=== PATIENT | female | born 1955 | race Caucasian/White ===

== ENCOUNTER 2016-04-13 15:21 | Inpatient (IN) | payer MEDICARE, MEDICAID ==
[~2016-04-13] VITALS: Ht 152.4 cm; Wt 79.5 kg
[~2016-04-13 15:21] MED LIST: DSS100 PO; DULO30C PO; LEVO125T2 PO; ONDA4TAB2 PO; OXYC-284 PO; [UNRECOGNIZED DRUG - CODE] PO
[2016-04-13 15:24] VITALS: BP 194/104; PULSE 113; RESP 20; O2SAT 99
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
[2016-04-13 16:26] LABS: BASOPHILS % (AUTO) 0.6 % (0-3); MONOCYTES % (AUTO) 7.2 % (4-12); Mean Corpuscular Volume 91.6 fL (81-100); Platelet Count 281 bil/L (150-400)
[2016-04-13 17:04] LABS: APPEARANCE,URINE CLEAR (CLEAR,HAZY); COLOR,URINE YELLOW (YELLOW); OCCULT BLOOD,URINE MODERATE (NEGATIVE); PH,URINE 6.5 (5.0-8.0); UROBILINOGEN,URINE NORMAL (NORMAL)
--- NOTE | 2016-04-13 20:38 | DRSVH ---
PROCEDURE: CT BRAIN WITHOUT CONTRAST ([id number]) INDICATIONS: headache h/o meningioma TECHNIQUE: Noncontrast 4.5 mm thick angled axial sections acquired from the foramen magnum to the vertex, with c oronal reformats. COMPARISON: Merged With [facility], MR, STROKE PROTOCOL (PNL), 05/12/2013, 15:52. [facility], CT, BRAIN W/O CONTRAST, 05/12/2013, 13:53. FINDINGS: Image quality: Excellent. CSF spaces: Basal cisterns are patent. No extra-axial fluid collections. The ventricles are symmet tatiana in size and shape. Brain: No intracranial bleeds or masses. There is minimal cerebral volume loss for age, with result ant ventricular and sulcal prominence. There are mild periventricular and deep white matter chronic small vessel ischemic changes. There is intracranial internal carotid artery atherosclerosis. Skull and face: There is parietal craniotomy. Sinuses: Visualized sinuses and mastoids are clear. IMPRESSION: 1. No acute intracranial abnormalities. 2. Cerebral volume loss and chronic microvascular ischemic changes. Dictated by: Harley Catherine M.D. on 04/13/2016 at 20:36 Approved by: Harley Catherine M.D. on 04/13/2016 at 20:36
[2016-04-13 20:56] VITALS: BP 144/84; PULSE 84; RESP 16; O2SAT 96
[2016-04-13] MEDS ORDERED: Benzocaine-Menthol Lozenge 2/Pkg PO PRN (22:25)
[2016-04-13] MEDS ORDERED: Magnesium Hydroxide 10 mL Oral Concentration PO PRN (22:25)
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
[2016-04-13] MEDS ORDERED: LEVO175T5 (23:23)
[2016-04-13] MEDS ORDERED: AMIT10TA6 (23:23)
[2016-04-13] MEDS ORDERED: OMEP20CA11 PO (23:23)
[2016-04-14] MEDS: Zolpidem 5 mg Tablet for FEMALE or >65YO PO PRN ×2 (00:56→20:49)
[2016-04-14] MEDS: LORazepam 0.5 mg Tablet PO PRN ×4 (00:56→21:33)
--- NOTE | 2016-04-14 05:44 | NUR ---
Pt arrived at 2114. Pt up and down through night for sleep. Isolated to room when awake. Pt observed every 15 minutes as ordered.
--- NOTE | 2016-04-14 05:46 | NUR ---
nursing, nights, 11-7 s- can i have something for anxiety and sleep ? thank you. o- has appeared to sleep after midnight to 0045. asked for and received 0.5 mg of anxiety and 5 mg of ambien at 0100 with good effect. slept 0130- 0300 and after 0345. assessed q 15 minutes. a- interrupted sleep, medication helpful, no apparent physical distress. p- monitor behavior/emotional state, quality, times and amount of sleep, use and effect of medication. naman
--- NOTE | 2016-04-14 11:38 | NUR ---
Nurses note Pt. c/o of 11/23 anxiety and 11/23 depression. States she "doesnt want to be alive", but denies any plans of self harm at this time. Says she feels safe here. Denies hallucinations. PRN ativan given at 1000. Assessed at 1100, and pt. states it has helped and is feeling a bit better.
[2016-04-14 18:01] VITALS: BP 153/95; PULSE 95; RESP 16
--- NOTE | 2016-04-14 18:43 | NUR ---
[facility] Day Shift Pt maintained behavioral control throughout the shift. Pt affect appears mostly flat, somewhat brighter when engaged with staff or peers. Pt spends most of the shift resting in her room or quietly watching TV in the dining room. Pt is appropriate with staff and peers when active on the unit, but is not social. Pt requested a room change in the afternoon, which staff accommodated without incident. Pt attended community meeting in the AM. Pt did not participate in group activities throughout the shift. Pt attended all meals and ate approx 100% of all meals.
[2016-04-14] MEDS: lamoTRIgine 25 mg Tablet PO SCH (20:49)
--- NOTE | 2016-04-14 23:33 | NUR ---
Nursing Note [id number] S. I don't feel anxious right now, I am here, I feel that is what I needed to do to try to get better. I just feel really depressed-I cant seem to make it better and I just put on my pleasant face all the time to hide it. O. Patient visible on unit, interacting with peers, watching TV. Patient rates anxiety 0/10, depression 6/10, denies current SI/HI or AH/VH. A. Patient appears depressed. Denied anxiety, but asked for Ativan twice this shift. P. Monitor for response to treatment/medications. Q 15 min checks for safety. Follow plan of care. Addendum: 04/14/16 at 2333 by MARYA LUJAN RN PRNs Ativan 0.5 mg po @ 1538 patient reports I am not really anxious-just really depressed. Ativan 0.5 mg po @ 2132 Tums 100 mg for heartburn @ 1749. Ambien 5mg for sleep @ 2048
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
--- NOTE | 2016-04-15 05:05 | NUR ---
Pt in bed upon arrival to unit. Sleep time noted 2215. pt slept a total of 7 hr uninterrupted sleep. No PRN's given on shift. Q15 min safety checks done per protocol, no distress noted. WCTM sleep, safety, behavior
--- NOTE | 2016-04-15 05:40 | NUR ---
PT Out on unit watching TV and attending group. Asleep at 2215. Pt observed every 15 minutes as ordered.
[2016-04-15 11:36] VITALS: BP 169/106; PULSE 91; RESP 16
[2016-04-15] MEDS: LORazepam 0.5 mg Tablet PO PRN ×2 (14:18→20:13)
[2016-04-15] MEDS: Pantoprazole 40 mg ER24 Tablet PO SCH (14:20)
--- NOTE | 2016-04-15 14:27 | NUR ---
Nursing Day Shift- S-"I'm not sure how I feel. The had me do an exercise today that threw me for a loup. At least now I know I will get well and I'm doing something about it." O- Pt. was awake for breakfast. She appeared well groomed and was polite and social with peers. She was able to contract for safety, but reports ongoing depression and anxiety. Ativan 0.5 reqyested and given at 1430 for anxiety rated 7/10. A- Depression, Participatory, eating well, tending to ADL's. P- Cont. BHTP.
[2016-04-15 17:15] VITALS: BP 148/118; PULSE 111; RESP 17
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
--- NOTE | 2016-04-15 18:25 | NUR ---
Fishing Tool Operator./ c.m. S.:"I'm very melancholy but I'm not covering it up." O.: met with pt. and MD together. Pt. is vol. This is her 1st psych. hospitalization. She "slept very well" last night. She denied SI/HI at this time. She denied AH/VH or paranoid/delusional thoughts. She rated depression at 8-9/10 and anxiety at 6/10. She was able to work on Treatment plan and goals in the best of her ability. She was in and out of her room. She denied side effect of meds. A.: pt. is cooperative, quiet, has a flat affect. P.: monitor behavior, work on CBT exercises; follow care plan.
--- NOTE | 2016-04-15 18:32 | PCM.PNPSY ---
Subjective Date of Service Apr 15, 2016 Subjective The patient reports today that she slept very well "wonderful" but was feeling mildly groggy this morning. She stated overall that she was feeling "very melancholy" as she is not covering up her mood with a false smile. She reported that she plans to do some increased activity when she gets out of the hospital and will be doing water aerobics with a friend. The patient did not complete her CBT worksheet. No other side effect complaints. Sleep: 7+ hours "slept wonderful" Appetite: "Not hungry at all" Suicidal and homicidal ideation: "Quieted" regarding SI, denies HI. Auditory hallucinations/Visual hallucinations: Denies Other Psychotic Symptoms: Denies Anxiety: Decreased over yesterday, 09/23. Depression: 8-12/24, 10/23 yesterday as she was "covering" Current Medications Current Medications Acetaminophen 650 mg Q4H PRN PO Last administered on 04/14/16at 17:51; Admin Dose 650 MG; Start 04/13/16 at 22:25 Amlodipine Besylate 5 mg DAILY PO Last administered on 04/15/16at 14:18; Admin Dose 5 MG; Start 04/15/16 at 11:45 Calcium Carbonate START WITH 500MG, IF ... Q6H PRN PO Last administered on at 17:51; Admin Dose 1,000 MG; Start 04/13/16 at 22:25 Lamotrigine 25 mg HS PO Last administered on 04/14/16at 20:49; Admin Dose 25 MG ; Start 04/14/16 at 21:00 Levothyroxine Sodium/ Levothyroxine Sodium 175 mcg DAILYAC PO Last administered on 04/15/16at 14:16; Admin Dose 175 MCG; Start 04/15/16 at 11:56 Lorazepam 0.5 mg Q6H PRN PO Last administered on 04/15/16at 14:18; Admin Dose 0.5 MG; Start 04/13/16 at 22:25 Mirtazapine 30 mg HS PO Last administered on 04/14/16at 20:51; Admin Dose 30 MG ; Start 04/14/16 at 21:00 Pantoprazole 40 mg DAILYAC PO Last administered on 04/15/16at 14:20; Admin Dose 40 MG; Start 04/15/16 at 11:40 Zolpidem Tartrate 5 mg HS PRN PO Last administered on 04/14/16at 20:49; Admin Dose 5 MG; Start 04/13/16 at 22:25 Mental Status Exam Vital Signs Vital Signs Date Time Temp Pulse Resp B/P Pulse Ox O2 Delivery O2 Flow Rate FiO2 04/15/16 11:36 36.5 91 16 169/106 Appearance: Neat/well groomed Attitude: Pleasant, Cooperative Behavior: No unusual behavior Affect: Well Modulated/Appropriate Mood: Dysthymic Thought Process/Associations: Logical/Sequential, Goal Directed Speech Production: Normal Speech Rate: Normal Speech Articulation: Normal Thought Content: Negativistic Danger to Self/Suicidal Ideati: None Danger to Others: None Hallucinations: Auditory (Denies), Visual (Denies) Consciousness: Alert Orientation: Person, Place, Date, Situation Memory: Grossly Intact Estimate Intellectual Function: Average Attention/Concentration & Cogn: Grossly Intact Insight: Good Judgement: Good Result Diagram: 04/13/16 1609 04/13/16 1609 Mental Health Plan The patient is a 61-year-old female with an extensive history of trauma, depression, and anxiety. She is currently presenting with worsening symptoms of depression and anxiety. She also presents with some mood elevation and may be experiencing rapid cycling bipolar, although her moods do not seem excessively out of control. It is possible that she may be experiencing some depersonalization related to her post traumatic stress disorder. There is a strong family history of responding to lamotrigine and, given her history of traumatic brain injury and affective instability, she would likely benefit from this medication. She was given informed consent regarding both lamotrigine and mirtazapine. It was believed that the use of mirtazapine may be beneficial in normalizing her sleep, appetite, and depression. The patient has positively responded so far to mirtazapine with improved sleep although there is no change in mood. No current suicidality. [place] AXIS I: 1. Posttraumatic stress disorder with possible depersonalization. 2. Major depressive disorder, chronic. 3. Generalized anxiety disorder by history. AXIS II: Deferred. AXIS III: See past medical history. AXIS IV: Moderate to severe with social isolation, limited coping skills, and chronic mental illness. AXIS V: Global Assessment of Functioning 30. Medications Medications to address General Physical Health Treatments 1. The patient will be provided a safe environment and at the present is denying active suicidal ideation and does not require one-to-one staffing. 2. She is encouraged to participate in group and milieu therapies. 3. She will meet with the treatment team on a daily basis to assess symptom side effects and response to treatment. 4. The patient will continue mirtazapine 30 mg nightly. 5. The patient will continue Lamictal 25 mg nightly. 6. Lorazepam 0.5 mg every 6 hours as needed for anxiety. 7. Zolpidem 5 mg nightly p.r.n. insomnia. 8. Anticipated length of stay 5-7 days. Mahin Small MD Apr 15, 2016 18:32
[2016-04-15] MEDS: Zolpidem 5 mg Tablet for FEMALE or >65YO PO PRN (20:12)
[2016-04-15] MEDS: lamoTRIgine 25 mg Tablet PO SCH (20:12)
[2016-04-15 20:40] VITALS: BP 149/102; PULSE 110; RESP 15
--- NOTE | 2016-04-15 22:13 | NUR ---
Nursing Note [id number] S: I am doing a little better today. O: Patient in dining room early afternoon, visited with in dining room this evening. Interacting with peers. Denied SI/HI, hallucinations. Reporting anxiety 09/23 depression 11/23. A: Anxiety not apparent. Smiling more this evening. P: Monitor for safety and response to treatment. Follow plan of care. Addendum: 04/15/16 at 2213 by MARYA LUJAN RN PRNs Ativan 0.5 mg po for anxiety 09/23 @ 2011. Effective anxiety reduced, patient sleeping.
--- NOTE | 2016-04-16 06:39 | NUR ---
Sleep Adequate sleep with over 7.5 hours. She awoke b/w [id number] and returned to sleep by 444.
[2016-04-16] MEDS: Pantoprazole 40 mg ER24 Tablet PO SCH (07:20)
[2016-04-16] MEDS: LORazepam 0.5 mg Tablet PO PRN ×3 (09:40→22:26)
--- NOTE | 2016-04-16 10:49 | NUR ---
Nursing Day Shift- S- "What should I feel with the Imitrex? What might I feel with the antidepressant? I slept better then I had been last night, but not as well as the night before. Can I get something for anxiety?" O- Pt. was awake for breakfast. She was pleasant, but flat. Pt. requested and received tylenol 650 mg for a headache rated 9/10 at 0800. She reported minimal relief. At 0935 Imitrex 25 and Ativan 0.5 were requested and given. At 1015 Pt. rated her pain as 5/10. Imitrex requested again at 1125.Pt. denies feeling and change with new psychiatric medications. Depression rated 8/10. A- Depression. Minimal effect thus far with medications. Headache improved with Imitrex. P- cont. BHTP
--- NOTE | 2016-04-16 14:20 | PCM.PNPSY ---
Subjective Date of Service Apr 16, 2016 Subjective The patient reports that her sleep was not quite as good as the previous night but still much better than it has been. She had a visit from her brother last night which went well. We discussed some of her reactions to completing a CBT work sheet and her feelings of being rejected by her son and helped her to process the information in a more meaningful way. The patient reported having a significant migraine which had developed over the last 4 days which did improve with Imitrex this morning. Her blood pressure remained elevated this morning 163/96. She denied side effects. Sleep: 7.5 hours, "better but not as good as last night." Appetite: "Still not much" Suicidal ideation: Reported having passive suicidal ideation when she woke up in the middle of the night. No current suicidality, plan, or intent. Homicidal ideation: Denies Auditory hallucinations/Visual hallucinations: Denies Other Psychotic Symptoms: Denies Anxiety: 08/23 Depression: 11/23, but after reviewing CBT work sheet and reformulating, 09/23. Current Medications Current Medications Amlodipine Besylate 5 mg DAILY PO Last administered on 04/16/16 07:20; Admin Dose 5 MG; Start 04/15/16 at 11:45 Lamotrigine 25 mg HS PO Last administered on 04/15/16at 20:12; Admin Dose 25 MG ; Start 04/14/16 at 21:00 Levothyroxine Sodium/ Levothyroxine Sodium 175 mcg DAILYAC PO Last administered on 04/16/16 07:20; Admin Dose 175 MCG; Start 04/15/16 at 11:56 Mirtazapine 30 mg HS PO Last administered on 04/15/16at 20:13; Admin Dose 30 MG ; Start 04/14/16 at 21:00 Pantoprazole 40 mg DAILYAC PO Last administered on 04/16/16 07:20; Admin Dose 40 MG; Start 04/15/16 at 11:40 Sumatriptan Succinate 25 mg Q2H PRN PO Last administered on 04/16/16 12:59; Admin Dose 25 MG; Start 04/16/16 at 09:15 Mental Status Exam Appearance: Neat/well groomed Attitude: Pleasant, Cooperative Behavior: No unusual behavior Affect: Restricted Mood: Dysthymic Thought Process/Associations: Logical/Sequential, Goal Directed Speech Production: Normal Speech Rate: Normal Speech Articulation: Normal Thought Content: Negativistic Danger to Self/Suicidal Ideati: None, Passive (only in the middle of the night. ) Danger to Others: None Hallucinations: Auditory (Denies), Visual (Denies) Consciousness: Alert Orientation: Person, Place, Date, Situation Memory: Grossly Intact Estimate Intellectual Function: Average Attention/Concentration & Cogn: Grossly Intact Insight: Good Judgement: Good Result Diagram: 04/13/16 1609 04/13/16 1609 Mental Health Plan The patient is a 61-year-old female with an extensive history of trauma, depression, and anxiety. She is currently presenting with worsening symptoms of depression and anxiety. She also presents with some mood elevation and may be experiencing rapid cycling bipolar, although her moods do not seem excessively out of control. It is possible that she may be experiencing some depersonalization related to her post traumatic stress disorder. There is a strong family history of responding to lamotrigine and, given her history of traumatic brain injury and affective instability, she would likely benefit from this medication. She was given informed consent regarding both lamotrigine and mirtazapine, including the risk of Napier-Connor syndrome. It was believed that the use of mirtazapine may be beneficial in normalizing her sleep, appetite , and depression. The patient has positively responded so far to mirtazapine with improved sleep and some improvement in her mood. The patient responded positively to Imitrex for migraines. CBT work sheets were useful for cognitive reformulation. No current suicidality. [place] AXIS I: 1. Posttraumatic stress disorder with possible depersonalization. 2. Major depressive disorder, chronic. 3. Generalized anxiety disorder by history. AXIS II: Deferred. AXIS III: See past medical history. AXIS IV: Moderate to severe with social isolation, limited coping skills , and chronic mental illness. AXIS V: Global Assessment of Functioning 35. Medications Sumatriptan 25 mg every 2 hours when necessary headache Pantoprazole 40 mg daily Amlodipine 5 mg daily Levothyroxine 175 g daily Mirtazapine 30 mg nightly Lamotrigine 25 mg nightly, titrate as tolerated. Lorazepam 0.5 mg every 6 hours when necessary anxiety Zolpidem 5 mg by mouth nightly when necessary insomnia Treatments 1. The patient will be provided a safe environment and at the present is denying active suicidal ideation and does not require one-to-one staffing. 2. She is encouraged to participate in group and milieu therapies. 3. She will meet with the treatment team on a daily basis to assess symptom side effects and response to treatment. 4. The patient will continue mirtazapine 30 mg nightly. 5. The patient will continue Lamictal 25 mg nightly. 6. Lorazepam 0.5 mg every 6 hours as needed for anxiety. 7. Zolpidem 5 mg nightly p.r.n. insomnia. 8. Now that migraine has resolved, we will need to recheck blood pressure and if it remains elevated in the morning would increase amlodipine to 10 mg. 9. Continue use of CBT worksheets. 10. Anticipated length of stay 5-7 days. Mahin Small MD Apr 16, 2016 14:20
[2016-04-16 15:34] VITALS: BP 169/106; PULSE 91; RESP 16
[2016-04-16 15:35] VITALS: BP 163/96; PULSE 96; RESP 16
--- NOTE | 2016-04-16 16:06 | NUR ---
[employer]./ c.m. S.:"Negative thoughts are better today." O.: met with pt. and MD together. Pt. complained about negative thoughts that kept her awake during last night. She slept "ok" but "previous night sleep was great". She had a good visit with her brother yesterday. She complained about headache today. She denied SI/HI right now but she said that she had "passive thought on and off on the middle of the night." She denied AH/VH or paranoid/delusional thoughts. She rated depression at 8/10 and anxiety at 6/10. She talked about her communication with her son and how she could work on CBT skills regarding their relationship. Staff provided pt. with info on Communication styles and Communication gap. Pt. was in and out of her room during the day. A.: pt. is cooperative, pleasant, passive, more social with peers. P.: monitor behavior, continue working on CBT and DBT skills; follow care plan.
--- NOTE | 2016-04-16 19:30 | NUR ---
NURSING NOTE [id number] Orientation= x4 Mood= "I'm still depressed" Affect= pleasant, brightens in conversation Behavior= visible in the common area for first half of the shift, watching football w/her peers, later retired to her room to read in bed. Med compliant. Thought processes= reports she is still feeling depressed and sad, and asked if it will ever get better-- discussed w/pt. that the medications take time to work, encouragement provided. When asked if she felt suicidal pt. reports she hears what sounds "like a mantra" telling her to kill herself, and that she has had it for "a long time" but this mantra is now more muted and she has no desire or plan to act on it. She described it as being more of a compulsion, discussed w/pt DBT and the practice of thought stopping. PRNS 16:04- Ativan 0.5 mg
[2016-04-16] MEDS: lamoTRIgine 25 mg Tablet PO SCH (21:09)
--- NOTE | 2016-04-16 21:12 | NUR ---
Observations 0900 to 2130 Pt affect and mood was flat and passive. Pt was isolative at times. Pt was pleasant, polite and cooperative. Pt speech and eye contact was good. Pt attended group and unit activities. Pt was social with peers. Pt watched football, TV and movies with peers. Pt maintained behavior control throughout the shift. Pt attended meals in the D.R. and ate 100% of breakfast, 100% of lunch and 100% of dinner. Pt was observed every 15 minutes throughout the shift as ordered.
[2016-04-16] MEDS: Zolpidem 5 mg Tablet for FEMALE or >65YO PO PRN (22:26)
--- NOTE | 2016-04-17 04:32 | NUR ---
OBSERVATIONS 1900 TO 0700 Pt was social with peers, pleasant and cooperative with staff. Pt attended group wrap-up, accomplished daily goal of watching football. Pt rated mood 5/10. Pt joked around with staff and peers, pt is very helpful. Pt was restless at first but was noted asleep at 0030. Maintained Q15 safety checks as directed.
--- NOTE | 2016-04-17 05:55 | NUR ---
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 Patient awake at 0500, requested " Tylenol and Tums" for complaint of H/A 7/10 and indigestion. Patient received Tylenol 650 mg and toe 500mg Tums. Patient returned to bed and appears to be sleeping at 0530 safety checks without further complaints voiced.
[2016-04-17] MEDS: Pantoprazole 40 mg ER24 Tablet PO SCH (08:33)
[2016-04-17] MEDS: LORazepam 0.5 mg Tablet PO PRN ×2 (10:22→20:40)
--- NOTE | 2016-04-17 12:46 | NUR ---
Nursing Day Shift- S- "I feel dizzy and I wonder if it could be my blood pressure? It started after the surgery." (Pt. reports dizziness since brain surgery.) O- Pt. reported feeling "melancholy." She was visible on the unit and participatory. She reported a headache of 4/10. A- Ongoing depression, Hypertension, headache and dizzy feeling. P- Pt. encouraged to discuss BP and dizziness wit the ContRenetta JOHANSEN
[2016-04-17] MEDS: Alum-Mag Hydrox-Simeth 30 mL Suspension PO PRN (16:52)
--- NOTE | 2016-04-17 20:24 | NUR ---
Obs Dayshift Pt is polite, engaging well w/ peers and staff. Pt participates, good eye contact, calm, and linear. Good ADL's, Good meals 75-100%
[2016-04-17] MEDS: lamoTRIgine 25 mg Tablet PO SCH (20:40)
[2016-04-17] MEDS: Zolpidem 5 mg Tablet for FEMALE or >65YO PO PRN (20:40)
--- NOTE | 2016-04-17 21:25 | PROG NOTE ---
[address] [address] PROGRESS NOTE PATIENT: DEE TREVIÑO : 1955 MR#: [id number] ADMIT: 04/13/2016 JOB ID: [id number] DATE: 04/17/2016 CHIEF COMPLAINT: "I was wondering if I can get an increase in my bipolar medicine. I am still pretty depressed." This is per patient report. HISTORY OF PRESENT ILLNESS: As stated above, the patient identified that she does feel that her Lamictal more than likely needs to be increased. She indicated that she is dealing with significant feelings of depression, feelings of hopelessness, helplessness. She indicated also that she was struggling with difficulties with nausea as related to a transition from her previous doses of Prilosec to Protonix based on hospital formulary. She indicated that she would like to have something for nausea. MENTAL STATUS EXAM: She was bright, cooperative, interactive. She maintained good eye contact throughout. Her speech was of normal tone, frequency, and volume. Her mood, per own report, is depressed. However, she appeared to be quite bright. Her affect was congruent. Her thought process showed no evidence of racing thoughts, flight of ideas, loose or disconnected thinking. Her thought content: She denied any evidence of current suicidal, homicidal ideation. She denied any active hallucinations, delusions. She was alert, oriented to time and place. Her attention and concentration were fair. Insight and judgment are poor. PHYSICAL EXAM: Vital signs of current. Temperature is 36.5, pulse 96, respirations 16, BP 163/96. MEDICATION REVIEW: Includes: 1. Doses of Imitrex 25 mg q.2 h. p.r.n. for migraine. 2. Synthroid 175 mcg daily. 3. Norvasc 5 mg daily. 4. Protonix 40 mg daily. 5. Remeron 30 mg q.h.s. 6. Lamictal 25 mg q.h.s. ASSESSMENT: [place] I 1. Posttraumatic stress disorder, chronic. 2. Depersonalization disorder. 3. Major depressive disorder, chronic. 4. Generalized anxiety disorder. [place] II Rule out cluster B personality features. [place] III 1. History of hypertension. 2. Hypothyroidism. 3. Gastroesophageal reflux disease. 4. Migraines. [place] IV Stressors are noted for social isolation, limited coping, chronic mental illness. [place] V Global assessment of functioning, current 35. PLANS: 1. Recommendations for titration of Lamictal to 50 mg q.h.s. 2. Titration of Norvasc to 10 mg daily based on continued hypertension. 3. Initiation of Zofran q.4 h. p.r.n. for nausea. 4. Recommended probable discharge later this week for continuation of outpatient interventions.
--- NOTE | 2016-04-17 21:55 | NUR ---
NURSING NOTE [id number] Orientation= x4 Mood= "even more depressed" *sighs* Affect= sad but brightens in conversation w/staff and peers Behavior= visible on unit, social w/peers, c/o upset stomach early in the shift d/t "all the processed food here" but this was relieved w/PRN Maalox. She attended wrap-up group. Med compliant. Thought processes= pt. continues to endorse depression. Says she feels "even worse than yesterday". She expressed frustration that she doesn't feel better. She expressed hope that her increased Lamictal dose this evening will help her. PRNs Maalox 16:52, effective Ativan 0.5 mg for anxiety and Ambien 5 mg @ HS for insomnia Addendum: 04/17/16 at 2204 by NGHIA MUÑOZ RN pt. expressed passive SI this evening w/no plan or intent, reports she feels safe here
--- NOTE | 2016-04-18 01:42 | NUR ---
Observations 1900 to 0700 Pt spent most of her night in her room. Pt did come out briefly for group and a snack. Pt was polite and cooperative. Pt read in her bed for awhile before before going to sleep. Pt first appeared asleep at 22:30 and was observed every 15 minutes through the night as directed.
--- NOTE | 2016-04-18 05:37 | NUR ---
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 Patient returned to bed, appears to be sleeping after 0230 safety checks and subsequent safety checks remainder of the night.
[2016-04-18] MEDS: Pantoprazole 40 mg ER24 Tablet PO SCH (07:25)
[2016-04-18 10:00] VITALS: BP 155/93; PULSE 90; RESP 16
[2016-04-18] MEDS: LORazepam 0.5 mg Tablet PO PRN ×2 (11:25→21:00)
--- NOTE | 2016-04-18 13:27 | NUR ---
Nursing Note [id number] Behavior, PRN Medications S/O: Pt c/o headache at a "7" on a scale of 1-10/10 the worst. Tylenol 650 mg given at 0725. Pt reported an improvement to a "6." Pt returned at 1125 & stated she still had a headache & was becoming anxious. Imitrex & Ativan 0.5 mg given. Pt currently states headache is gone. Pt rated anxiety at a "8." She reports it is "better." Pt rated depression at a "6." She reports feeling "weepy." She denies suicidal ideation. Pt out in unit. Pleasant & cooperative with cares & medications. Good appetite. A: Pt struggling with depression. P: Provide supportive environment. Monitor medications & effects.
--- NOTE | 2016-04-18 16:16 | PROG NOTE ---
[address] [address] PROGRESS NOTE PATIENT: DEE TREVIÑO : 1955 MR#: [id number] ADMIT: 04/13/2016 JOB ID: [id number] DATE: 04/18/2016 CHIEF COMPLAINT: "I think I am doing okay. Thank you for increasing my Lamictal." HISTORY OF PRESENT ILLNESS: As stated above, the patient openly identified that she is doing a little bit better. She indicated that she has been working on various skills throughout the daytime hours and indicated that she would be willing to look at discharge on . OBJECTIVE: On mental status examination, she was bright, cooperative, interactive. She maintained good eye contact throughout. Her speech was of normal tone, frequency and volume. Her mood was neutral. Affect was congruent. Her thought process showed no evidence of racing thoughts, flight of ideas, loose or disconnected thinking. Thought content: She denied any evidence of current suicidal or homicidal ideation. No evidence of active hallucinations, delusions. She was alert, oriented to time and place. Attention and concentration intact. 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 Insight and judgment are fair. PHYSICAL EXAMINATION: Vital signs are current. Temperature is 37, pulse 90, respirations 16, BP 155/93. MEDICATION REVIEW: Includes: 1. Norvasc 10 mg daily. 2. Lamictal 50 mg q.h.s. 3. Synthroid 175 mcg daily. 4. Remeron 30 mg q.h.s. ASSESSMENT: AXIS I 1. Major depressive disorder, recurrent type. 2. Posttraumatic stress disorder, chronic. 3. Depersonalization disorder. 4. Generalized anxiety disorder. AXIS II Cluster B personality features. AXIS III 1. History of hypertension. 2. Hypothyroidism. 3. Gastroesophageal reflux disease. 4. Migraines. AXIS IV Stressors are noted for social isolation, limited coping, chronic mental illness. AXIS V Global assessment of functioning of current 35. PLANS: 1. Recommendations to continue all medications as noted. 2. Probable discharge on .
--- NOTE | 2016-04-18 16:36 | NUR ---
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 S.:"I'm having a good moment. Mood is better today." O.: met with pt. in her room. She slept "better than before" last night. She was pleased with her meds. She denied SI/HI, denied AH/VH or paranoid/delusional thoughts. She rated depression at 8/10 and anxiety at 3-4/10. She said that her mood was "much better" than before. She was in and out of her room during the day. A.: pt. is cooperative, pleasant, has brighter affect and a positive attitude. P.: monitor behavior, work on Safety plan and follow up; follow care plan.
--- NOTE | 2016-04-18 20:23 | NUR ---
Obs Dayshift Pt spent more time in the evening out in the milieu w/ peers watching TV. Spent the day in and out of her room, reading, writing and napping. Pt is polite, good eye contact, appropriate, engages well, quiet, slightly reserved. Good ADL's, Good meals
[2016-04-18] MEDS: lamoTRIgine 25 mg Tablet PO SCH (20:57)
[2016-04-18] MEDS: Zolpidem 5 mg Tablet for FEMALE or >65YO PO PRN (21:00)
--- NOTE | 2016-04-18 22:20 | NUR ---
Nursing Note Mary Pt up in milieu most of shift. pt noted socializing with staff and peers.Pt attended group and mary snack Pt answers questions appropriately and appears to be clear in thought process. Pt was compliant with HS meds and appeared to be guarded when questioning anxiety and depression . Pt did request Ativan for anxiety and Ambien to help her sleep. Pt went to bed shortly after and is currently resting in room. Q15 min safety checks done per protocol, [facility] sleep, safety, behavior
--- NOTE | 2016-04-19 01:27 | NUR ---
Observations 1900 to 0700 Pt affect remains the same as in the previous night. Pt did come out briefly for group and a snack. Pt was polite and cooperative. Pt read in her bed for awhile before before going to sleep. Pt first appeared asleep at 22:30 and was observed every 15 minutes through the night as directed.
--- NOTE | 2016-04-19 05:55 | NUR ---
Sleep Adequate sleep of 7.5 hours. No noted distress or awakening per protocol checks.
[2016-04-19] MEDS: Pantoprazole 40 mg ER24 Tablet PO SCH (07:52)
--- NOTE | 2016-04-19 11:18 | NUR ---
Nursing Day Shift- S- "I feel so much better today. I think my blood pressure was causing all kinds of problems. I'm no longer dizzy and when I woke up I didn't even think about wanting to not be here." O- Pt. had slept 7.5 hours per staff report. She appeared at breakfast well dressed, and eat 100%. Pt. reported improved mood and decreased anxiety today. She denied feeling dizzy. A- Decreased depression and anxiety. Improved sleep. P- Cont. BHTP.
[2016-04-19] MEDS: LORazepam 0.5 mg Tablet PO PRN ×2 (12:25→20:40)
[2016-04-19] MEDS: lamoTRIgine 25 mg Tablet PO SCH (20:41)
[2016-04-19] MEDS: Zolpidem 5 mg Tablet for FEMALE or >65YO PO PRN (21:37)
--- NOTE | 2016-04-19 21:40 | NUR ---
nursing note 3-11pm S)"I am just anxious about going home I can't really say why" O)pt requested antianxiety medication and tylenol for restless legs in the night " I sleep much better if I take tylenol" out in milieu most of shift ate dinner, watched TV socialized with peers, denies SI A) anxious, cooperative, anticipating DC tomorrow P) monitor effectiveness of medications
[2016-04-19] MEDS: Alum-Mag Hydrox-Simeth 30 mL Suspension PO PRN (23:53)
--- NOTE | 2016-04-20 05:04 | NUR ---
noc shift 11-7 Pt was having difficulty sleeping, ambien given. c/o dyspepsia and maalox given per pt request and was effective then she went to sleep. She slept 7 hrs tonight and had an uneventful night.
[2016-04-20] MEDS: Pantoprazole 40 mg ER24 Tablet PO SCH (08:00)
--- NOTE | 2016-04-20 10:11 | PCM.DIMED ---
Discharge Instructions Date of Service Apr 20, 2016 Dates of Hospitalization Apr 13, 2016 at 21:11 Discharge Diagnosis Discharge Diagnosis Mood DO NOS Bipolar DO 2 PTSD chronic Diet No restrictions Activity No restrictions Da Aviles DO Apr 20, 2016 10:11
[2016-04-20] MEDS ORDERED: LAMO25TA PO (10:16)
[2016-04-20] MEDS ORDERED: HYDR50CA PO (10:16)
[2016-04-20] MEDS ORDERED: MIRT15TA6 PO (10:16)
[2016-04-20] MEDS ORDERED: AMLO10TA3 PO ×2 (10:16→10:17)
[2016-04-20] MEDS: LORazepam 0.5 mg Tablet PO PRN (10:47)
--- NOTE | 2016-04-20 10:50 | NUR ---
Nursing Discharge- Planned discharge to home today. Pt. had slept 7 plus hours per shift report. Her prescriptions were faxed to [facility] as she had requested. Home medications were returned from [facility] pharmacy, along with all other Pt. belongings. Pt. requested and was given Imitrex 25 mg with Ativan 0.5 mg for headache rated 5/10 and anxiety rated 5/10. Pt. denied suicidal thoughts and rated her depression as 4/10. She again reported that she felt much better since admission, and felt the Trileptal has been very effective.
--- NOTE | 2016-04-20 13:19 | PROG NOTE ---
[address] [address] PROGRESS NOTE PATIENT: DEE TREVIÑO : 1955 MR#: [id number] ADMIT: 04/13/2016 JOB ID: [id number] DATE: 04/19/2016 CHIEF COMPLAINT: "I think I'm doing well. I will be ready for discharge tomorrow." This is per patient report. HISTORY OF PRESENT ILLNESS: As stated above, the patient openly identified significant improvement with her mood, stating that she was very grateful for come into the hospital. She denied any evidence of acute distress and was hopeful for a scheduled discharge tomorrow. She denied any evidence of side effects of her medication and was agreeable for appropriate followup with her PCP for her noted history of hypertension as well. OBJECTIVE: On mental status exam, she was bright, cooperative, and interactive. She denied any evidence of acute distress. Her speech was of normal tone, frequency, and volume. Her mood was neutral. Affect was congruent. Her thought process showed no evidence of racing thoughts, flight of ideas, loose or disconnected thinking. Her thought content: She denied any evidence of current suicidal, homicidal ideation. No evidence of active hallucinations, delusions. She was alert, oriented to time, place, and situation. Attention and concentration intact. Memory intact in the short term, intermission coordinator, recent. Insight and judgment were fair. PHYSICAL EXAM: Vital signs were not collected. MEDICATION REVIEW: Includes: 1. Lamictal 50 mg q.h.s. 2. Norvasc 10 mg q.a.m. 3. Synthroid 175 mcg daily. 4. Remeron 30 mg q.h.s. ASSESSMENT: AXIS I: 1. Mood disorder, not otherwise specified. 2. Posttraumatic stress disorder, chronic. 3. Generalized anxiety disorder. AXIS II: Borderline personality features. AXIS III: 1. History of hypothyroidism with replacement. 2. History of hypertension. AXIS IV: Stressors are noted for disturbance of coping, disturbance of primary support group. AXIS V: Global Assessment of Functioning of current 35. PLAN: 1. Recommendations to discharge tomorrow. 2. Continuation of all medications noted.
[2016-04-20 13:45] VITALS: BP 166/83; PULSE 93; RESP 16
--- NOTE | 2016-04-20 13:51 | NUR ---
Pt. discharged at 1313 as planned today.
--- NOTE | 2016-04-20 17:53 | NUR ---
Case Management/Counselor: S: "It's the 23 anniversary for when my ." O: Met with patient. Patient slept 7 hours last night per staff. Patient denies S/I and H/I. She also denies auditory and visual hallucinations. She did not rate depression and anxiety. When asked her mood, patient stated, "Up and down." Out-patient appointments: Beulah counselor at [facility], 04/27/16 at 1:00pm and Dr. Joaquin, [facility], 05/04/16 at 3:30pm. A: Patient is cooperative, flat affect, hopeful, fair insight, fair judgment. P: Follow care plan, coordinate out-patient providers.
--- NOTE | 2016-04-21 07:08 | DIS ---
[address] [address] DISCHARGE SUMMARY PATIENT: DEE TREVIÑO : 1955 MR#: [id number] ADMIT: 04/13/2016 JOB ID: [id number] DIS: 04/20/2016 ADMITTING DIAGNOSES: AXIS I: 1. Posttraumatic stress disorder, chronic. 2. Rule out depersonalization disorder. 3. Major depressive disorder, recurrent, chronic. 4. Generalized anxiety disorder. AXIS II: Deferred. AXIS III: See medical history. AXIS IV: Moderate to severe with social isolation, limited coping skills, chronic mental illness. AXIS V: Global Assessment of Functioning of current 30. DISCHARGE DIAGNOSES: AXIS I: 1. Mood disorder, not otherwise specified. 2. Posttraumatic stress disorder, chronic. 3. Generalized anxiety disorder. AXIS II: Cluster B personality features. AXIS III: History of hypothyroidism with replacement, history of hypertension. AXIS IV: Stressors are noted for disturbance of coping, disturbance of primary support system. AXIS V: Global Assessment of Functioning of current 40. REASON FOR ADMISSION: The patient was a 61-year-old female with an extensive history of trauma, depression, and anxiety. During the course of hospitalization, the patient was agreeable to initiate doses of Lamictal eventually titrated to 50 mg daily. In addition, the patient remained on doses of Remeron at 30 mg q.h.s. Throughout hospital course, the patient participated in cognitive behavioral therapist with Dr. Small and also continuation of DBT curriculum with additional staff involvement. Throughout hospital course, the patient was agreeable to return to outpatient care providers for institution of individual therapies, medication management, and showed no evidence of further concerns of suicidal ideation. CONDITION AT THE TIME OF DISCHARGE: Patient's mood and affect are stable. She denied any evidence of current suicidal, homicidal ideation. No evidence of active hallucinations, delusions. She was alert, oriented to time, place, situation. Attention and concentration intact. Memory intact in the short term, fci, recent. Insight and judgment were fair. DISCHARGE PLANS: 1. Follow up with at [facility] in [place] on April 27, 2016 at 1:00 p.m. 2. Follow up with Dr. Jaoquin on May 04 at 3:30 at [facility] for ongoing medical interventions. 3. Continuation of medications including Lamictal 50 mg q.h.s. one month supply, no refills. Reason for usage, mood stabilizer. 4. Continuation of Remeron 30 mg q.h.s., one month supply, no refills. Reason for usage, PTSD and anxiety. 5. Continuation of Norvasc 10 mg, one month supply, no refills. Reason for usage, antihypertensive.
== END 2016-04-20 13:13 | disposition home or self-care (01) | DRG 885 ==
LOC: SED 15:21 → MHC 21:09
PROVIDERS: ADMIT Psychiatry & Neurology Psychiatry; ATTEND Psychiatry & Neurology Psychiatry
DX: F39 Unspecified mood [affective] disorder (principal); F43.12 Post-traumatic stress disorder, chronic; F41.1 Generalized anxiety disorder; E03.9 Hypothyroidism, unspecified; I10 Essential (primary) hypertension; K21.9 Gastro-esophageal reflux disease without esophagitis